=== PATIENT | female | born 1990 | race Hispanic/Latino ===

== ENCOUNTER 2020-04-05 10:58 | Outpatient (CLI) | payer OTHER ==
--- NOTE | 2020-04-05 12:54 | ULT ---
ULTRASOUND OBSTETRICAL COMPLETE: DATE: 04/05/2020 HISTORY: 30-year-old female "Z 34.82 encounter for supervision of other normal , second trimester. Co mplete anatomy, size and dates, and cervical length" FINDINGS: Maternal adnexa: Not visualized. number: [email or web address] lie: Cephalic Maternal cervix: 5 cm. Closed. Placenta: Posterior. No placenta previa. Amniotic fluid volume: HARRIET = 13.5 cm heart rate: 147 bpm The following anatomy is visualized, with no evidence of anomalies: Head, cerebellum, lateral ventricles, four-chamber heart, stomach, kidneys, cord insertion, bladder, cervical spine, thoracic spine, lumbar spine, sacrum, nose and lips, upper extremities, lower extremities, and three-vessel cord. biometry: Biparietal diameter (BPD): 6.3 cm 25 w 5 d Head circumference (HC): 23.8 cm 25 w 6 d Abdominal circumference (AC): 21.0 cm 25 w 5 d Femur length (FL): 4.8 cm 26 w 0 d Average ultrasound age (AUA): 25 w 6 d Estimated date of delivery (YOSELYN): 07/13/2020 Estimated weight (EFW): 843 g +/- 123 g IMPRESSION: 1) Live 2nd trimester intrauterine gestation. 2) Estimated gestational age of 25 weeks, 6 days 3) cephalic lie. 4) no anatomic abnormality identified.
== END 2020-04-05 10:59 | disposition home or self-care (01) ==
LOC: BICULT 10:58
PROVIDERS: ATTEND Nurse Practitioner
DX: Z34.82 Encounter for supervision of other normal pregnancy, second trimester (principal); Z3A.25 25 weeks gestation of pregnancy
CPT/HCPCS: 76805